=== PATIENT | male | born 2000 | race Caucasian/White ===

== ENCOUNTER 2022-12-22 03:14 | Emergency (ER) | payer OTHER, SELFPAY ==
[2022-12-22 03:19] VITALS: BP 145/86; PULSE 82; RESP 18; TEMP 36.6; O2SAT 98; BMI 23.3
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
[2022-12-22 04:10] VITALS: BP 128/85; PULSE 82; RESP 16
[2022-12-22 04:12] VITALS: BP 128/85; PULSE 82; RESP 16; O2SAT 99
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
== END 2022-12-22 04:12 | disposition home or self-care (01) ==
PROVIDERS: Emergency Provider Family Medicine; PCP Family Medicine
DX: T23.602A Corrosion of second degree of left hand, unspecified site, initial encounter (principal); W40.1XXA Explosion of explosive gases, initial encounter
CPT/HCPCS: 29125; 99283